=== PATIENT | male | born 1965 | race Two or more races ===

== ENCOUNTER 2025-10-27 09:00 | Day surgery (SDC) | payer OTHER ==
[2025-10-21 10:08] LABS: BASO % 1.1 % (0.1-1.2); EOS # 0.12 (0.04-0.54); EOS % 1.8 % (0.7-7.0); LYMPH # 3.12 (1.18-3.74); LYMPH % 47.3 % (19.3-53.1); MEAN PLATELET VOLUME 10.40 fl (9.4-12.4); MONO # 0.58 (0.24-0.82); MONO % 8.8 % (4.7-12.5); NEUT # 2.68 (1.56-6.13); NEUT % 40.7 % (34.0-71.1); RED CELL DISTRIBUTION WIDTH 13.3 % (11.6-14.4)
[2025-10-21 10:13] LABS: URINE APPEARANCE Clear; URINE BILIRRUBIN Negative (NEGATIVE); URINE BLOOD Negative; URINE COLOR Yellow; URINE GLUCOSE Negative (NEGATIVE); URINE KETONE Negative (NEGATIVE); URINE LEUKOCYTE Negative; URINE NITRATE Negative; URINE PROTEIN Negative (NEGATIVE); URINE UROBILINOGEN 1.0 E.U./dl
[2025-10-21 10:15] VITALS: BP 150/83
[2025-10-21 10:18] LABS: URINE RBC 3.0 uL (0.0-20.8); URINE WBC 9.0 uL (0.0-23.2)
[2025-10-21 10:25] LABS: URINE BACTERIA 3.5 uL (0.0-1933); URINE CAST 0.00 uL (0.0-1.40); URINE EPITHELIAL CELLS 0.7 uL (0.0-38.8)
[2025-10-21 10:43] LABS: INR 1.13
[2025-10-21 11:00] LABS: ALT/SGPT 40.0 U/L (12-78); AST/SGOT 58.0 U/L (15-37); BILIRUBIN TOTAL 0.79 mg/dL (0.3-1.2); BUN CREA RATIO 18.0 (7.0-25.0); CREATININE SERUM 0.67 mg/dL (0.70-1.30); GFR 122.26; GLOBULINA 4.0 G/DL (2.4-3.5); GLUCOSE FASTING 94.0 mg/dL (65-100); OSMOLALITY SERUM 279.0 MOSM/KG (275-295)
[~2025-10-27] VITALS: Ht 167.6 cm; Wt 81.6 kg
[~2025-10-27 09:00] MED LIST: HORIZANT300 MG PO; NISOLDIPINE8.5 MG PO; SIMVASTATIN5 MG PO; ZESTRIL2.5 MG PO
[2025-10-27] MEDS ORDERED: CEFAZOLIN SODIUM 1,000 MG VIAL IV ONE (11:45)
== END 2025-10-27 16:25 | disposition home or self-care (01) ==
LOC: CIR.AMB 09:00
PROVIDERS: ATTEND Surgery
DX: K40.90 Unilateral inguinal hernia, without obstruction or gangrene, not specified as recurrent (principal); K42.0 Umbilical hernia with obstruction, without gangrene
CPT/HCPCS: 49650; 49594; C1781